=== PATIENT | female | born 1985 | race Caucasian/White ===

== ENCOUNTER 2017-10-28 07:33 | Inpatient (IN) | payer SELFPAY ==
[2017-10-28] VITALS (7 sets, daily range): BP systolic 134–167; BP diastolic 87–109; PULSE 81–97; RESP 15–20; TEMP 36.2–37.1; O2SAT 95–100; BMI 25.0; BMI 28.5
--- NOTE | 2017-10-28 07:56 | CT_ITS ---
STUDY: CT ABDOMEN AND PELVIS WITHOUT CONTRAST REASON FOR EXAM: Female, 32 years old. Right flank pain. RADIATION DOSAGE (If Supplied By Facility): CTDIvol = ( 7.41 ) mGy, DLP = ( 381.39 ) mGycm TECHNIQUE: Transaxial images were obtained from the dome of the diaphragm to the symphysis pubis without oral contrast, and without intravenous contrast. Sagittal and coronal images were reconstructed. Individualized dose optimization techniques were used for this CT. COMPARISON: None. FINDINGS: The visualized lung bases are unremarkable. The visualized portions of the heart are within normal limits. Normal liver. Questionable tiny gallstones. Normal spleen. Normal pancreas. Normal bilateral adrenal glands. Moderate right hydronephrosis. Calcification of the papilla suggestive of medullary sponge kidney. Dilated right ureter down to the ureterovesical junction due to a 3.5 mm calculus at the UV junction. Moderate degree of left hydronephrosis and left hydroureter due to a 2.8 mm calculus at ureterovesical junction. This also evidence of left medullary sponge kidney. There is a small hiatal hernia. Normal small intestine. Normal colon. The appendix is visualized and appears normal. Normal abdominal aorta. Normal inferior vena cava. Normal retroperitoneum. Normal urinary bladder. Normal abdominal wall. Normal osseous structures. CT/Abdomen/Pelvis without Cont IMPRESSION: Bilateral hydronephrosis and hydroureter due to a 3 mm calculus at the right ureterovesical junction and 2.8 mm calculus at the left ureterovesical junction. Findings in keeping with bilateral medullary sponge kidneys. Electronically Signed: Rey Quinn MD at 9:30 EDT Tel [phone], Service support ,
--- NOTE | 2017-10-28 07:57 | ED.VISSUMM ---
- ER Visit Summary Date of Service: 10/28/17 Chief Complaint: Flank pain History of Present Illness: The patient is a 32 F with flank pain that started about 4 hours ago. It woke her up from sleep. No hematuria. Pain is described as sharp and stabbing. No history of kidney stones before. Physical Examination: She appears in some distress Moist mucous membranes, no obvious facial deformity No C-spine tenderness supple neck. Regular rate and rhythm without any obvious murmurs Clear lungs bilaterally speaking in full sentences without any obvious respiratory distress Abdomen soft with tenderness in the right side of the abdomen mid axillary line. She does have right-sided CVA tenderness. Moves all extremities without any difficulty or pain. Skin does not show any obvious rashes or lesions, no trauma. Alert oriented ?3 with no gross focal deficit Emergency Department Course and Treatment: Is found to have bilateral hydronephrosis with bilateral UVJ stones. I discussed the patient with urology she will need surgery tomorrow in the meantime she will be admitted. There is no evidence of infection. Disposition: Admit in stable condition Impression: Bilateral impacted kidney stones with bilateral hydronephrosis This note was generated with [employer] dictation software. It may contain incorrect words, spelling, and punctuation that were not noted in review of the chart prior to signing ED Disposition - Plan for ED Patient: Chief Complaint: Flank Pain
[2017-10-28] MEDS: Morphine 4 MG/ML Syringe IV ×2 (08:02→10:44)
[2017-10-28] MEDS: Ondansetron 4 MG/2 ML Vial IV (08:02)
[2017-10-28] MEDS: 0.9% Normal Saline 1,000 ML 1000 ML IV (08:02)
[2017-10-28] MEDS: Ketorolac 30 MG/ML Syringe 15 MG IV (08:02)
[2017-10-28 08:07] LABS: Absolute Lymphocyte Count 1.16 X10^3/ul (0.83-4.51); Absolute Neutrophil Count 9.6 X10^3/uL (2.0-7.7); Basophil# 0.03 X10^3/uL; Basophil% 0.3 % (0-1); Eosinophil# 0.04 X10^3/uL; Eosinophils% 0.4 % (0-5); Hematocrit 39.7 % (37-47); Hemoglobin 13.1 g/dl (12.0-15.0); Lymphocyte # 1.16 X10^3/ul (4.0); Lymphocyte % 10.3 % (19-41); Mean Corpuscular Hgb 26.6 pg (27.0-32.0); Mean Corpuscular Volume 80.7 fL (81-99); Mean Platelet Vol. 11.1 fl (6.2-12.0); Monocyte# 0.42 X10^3/uL; Monocyte% 3.7 % (0-10); Neutrophil # 9.58 X10^3/uL (2.7-7.7); Neutrophil % 85.2 % (47-70); POSITIVE COUNT NO; POSITIVE DIFFERENTIAL NO; POSITIVE MORPHOLOGY NO; Platelet Count 210 K/mm3 (150-450); RBC Distribution Width CV 13.1 % (11.6-14.6); Red Blood Count 4.92 M/mm3 (4.2-5.4); White Blood Count 11.2 K/mm3 (4.4-11.0)
[2017-10-28 08:17] LABS: Anion Gap 7 (5-15); BUN 13 mg/dL (7-18); BUN/Creat Ratio 12.7 RATIO (10-20); Calcium,Total 8.7 mg/dL (8.5-10.1); Chloride 104 mmol/L (98-107); Creatinine, Serum 1.02 mg/dL (0.55-1.02); EST Glomerular Filtration Rate 67 mL/min (>60); Est Glom Filt Rate - Afr Amer 81 mL/min (>60); Estimated Creatinine Clearance 71.91 ml/min; Glucose 105 mg/dL (74-106); Potassium 3.8 mmol/L (3.5-5.1); Sodium Level 139 mmol/L (136-145)
[2017-10-28 08:30] LABS: Mucous, Urine 0 SEEN /hpf (<or=2+); White Blood Cells 0 SEEN /hpf (0-5)
[2017-10-28 08:40] LABS: Internal QC Validated? YES +Cl - CLEAR BKGD; Pregnancy, Urine Negative Negative
[2017-10-28 08:47] LABS: Color, Urine Yellow (Yellow); Glucose, Dipstick Normal (Normal); Ketone-Dipstick Negative (Negative); Leukocyte Esterase-Dipstick Negative /ul (Negative); Nitrite-Dipstick Negative (Negative); Occult Blood-Urine 250 /ul (Negative); Protein-Dipstick Negative (Negative); Urine Bilirubin Dipstick Negative (Negative); Urine Clarity Sl. Cloudy (Clear); Urine Urobilinogen Normal (Normal); Urine pH 6.5 (5.0 - 8.0)
[2017-10-28 08:54] LABS: Bacteria 1+ /hpf (None Seen); Red Blood Cells-Urine 25-50 SEEN /hpf (0-5); Squamous Epithelial Cells - UA 0-5 SEEN /hpf (5-10)
--- NOTE | 2017-10-28 10:31 | NURSING ---
DR SHADIA BOSWELL
--- NOTE | 2017-10-28 10:38 | NURSING ---
MED SURG CORIN BOSWELL/SHADIA
--- NOTE | 2017-10-28 10:39 | HP.PCM_ITS ---
Problem List (1) Bilateral ureteral calculi Status: Acute Comment: Bilateral hydronephrosis and hydroureter due to 3 mm calculus at right ureterovesical junction and 2.8 mm calculus at the left ureteral vesicle junction (2) Hydronephrosis Status: Acute Qualifiers: Hydronephrosis type: other Qualified Code(s): N13.39 - Other hydronephrosis (3) Hydroureter Status: Acute History of Present Illness Date of Admission: 10/28/17 Chief Complaint: Flank pain, ongoing, nausea, emesis The patient is a 32 y/o F w/ no marked PMHx w/ x 2 and 1 miscarriage otherwise healthy who notes onset ~ 2 weeks prior L flank pain, noted to be sharp prompting UC evaluation in [place] where she lives with no intervention at that time and improvement after 24 hours; however, pain was noted to continue intermittently with then onset on AM of current presentation with new onset R sided flank pain concurrently, worsened, sharp with nausea and emesis. In the ED work-up included T 98.7, heart rate 97, BP initially 167/109--> 136/93 , respiratory rate 20, 100% on room air, CBC with WBC 11.2, Hgb 13.1, Plts 210 with L shift, BMP unremarkable with normal renal function, UA w/ occult blood 250, RBC 25-50, 1+ bacteria, WBC 0-5, CT A/P w/ bilateral hydronephrosis and hydroureter due to a 3 mm calculus at the right ureteral vesicle junction and 2.8 mm calculus at the left ureterovesical junction with findings in keeping with bilateral possible medullary sponge kidneys. In the emergency room patient administered Toradol, morphine, Zofran, normal saline and neurology consulted. Dr. Christie noted suspicions that bilateral stones would pass without intervention therefore requested admission to medicine service with consultation. 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 Lives: Spouse/ Significant Other, With Family Smoking Status: Never smoker Tobacco Use: Non-smoker Alcohol: None Drugs: None - *Family History Maternal History Items: - - Maternal family history of anemia. Paternal History Items: High Cholesterol Review of Systems Constitutional: Reports: Malaise, Weakness, Fatigue. Denies: Chills, Fever, Weight Change HEENT: Denies: Head Aches, Sinus Congestion, Sinus Drainage Cardiovascular: Denies: Chest Pain, Palpitations Respiratory: Denies: Cough, Shortness of breath at rest, Sputum production Gastrointestinal: Reports: Abdominal Pain, Nausea, Vomiting Genitourinary: Reports: Dysuria Musculoskeletal: Reports: Back Pain. Denies: Joint Pain, Joint Tenderness Skin: Denies: Rash, Wounds Neurological: Denies: Numbness, Tingling, Focal weakness Psychiatric: Denies: Anxiety, Depression, Homicidal Ideations, Suicidal Ideations Hematologic/ Lymphatic: Denies: Easy Bruising, Easy Bleeding VTE Information - Inpt Only VTE Present on Admission: No VTE Mechan Device Prophylaxis: SCD's VTE Pharm Prophylaxis ordered?: No Reason prophylaxis not ordered:: Treatment Not Indicated Patient Problems: Active and Suspected Problems Bilateral ureteral calculi (Acute) Bilateral hydronephrosis and hydroureter due to 3 mm calculus at right ureterovesical junction and 2.8 mm calculus at the left ureteral vesicle junction Hydronephrosis (Acute) Hydroureter (Acute) Subjective: Seated upright in the bed, notes pain improved, but ongoing. Objective: Physical Examination: General: awake, alert, oriented x 3 and cooperative, seated upright in bed in no apparent distress, fatigued appearance. Skin: normal color, turgor, no icterus, cyanosis. HEENT: AT/NC, EOMI, PERRLA, dry MM, no carotid bruits or JVD noted. Lungs: Diminished BS BL, poor effort, > bases, no rales, ronchi or wheezing. Heart: Regular rate and rhythm; no gallop, rub audible. Abdomen: soft, mild BL LQ TTP, BL flank discomfort w/ palpation, ND, decreased BS, no HSM. Extremities: no cyanosis, clubbing, or edema. Neurological: patient awake, alert, oriented x 3; cognitive function intact; pupils equally reactive to light and accomodation; cranial nerves II-XII grossly normal, moving all 4 extremities, no focal deficits, strength moderately globally decreased secondary to acute presentation. Psychiatric: affect appears fatigued, no acute evidence of depressive or anxiety feelings. - Physical Exam Vital Signs Temp Pulse Resp BP Pulse Ox 98 F 90 15 163/94 H 99 10/28/17 07:34 10/28/17 10:19 10/28/17 10:19 10/28/17 10:19 10/28/17 10:19 Oxygen Delivery Method Room Air Weight: 150 lb Body Mass Index (BMI) 25.0 Laboratory Tests Past 24 Hrs 10/28/17 10/28/17 10/28/17 07:50 07:50 07:50 WBC 11.2 H RBC 4.92 Hgb 13.1 Hct 39.7 MCV 80.7 L MCH 26.6 L MCHC 33.0 RDW 13.1 RDW Differential 38.0 Plt Count 210 MPV 11.1 Immature Gran % (Auto) 0.100 Neut % (Auto) 85.2 H Lymph % (Auto) 10.3 L Stewart % (Auto) 3.7 Eos % (Auto) 0.4 Baso % (Auto) 0.3 Absolute Neuts (auto) 9.6 H Absolute Lymphs (auto) 1.16 Total Counted Not Reportable Sodium 139 Potassium 3.8 Chloride 104 Carbon Dioxide 28.0 Anion Gap 7 BUN 13 Creatinine 1.02 Estim Creat Clear Calc 71.91 Est GFR (MDRD) Af Amer 81 Est GFR (MDRD) Non-Af 67 BUN/Creatinine Ratio 12.7 Glucose 105 Calcium 8.7 Urine Color Urine Clarity Urine pH Ur Specific [place] Urine Protein Urine Glucose (UA) Urine Ketones Urine Occult Blood Urine Nitrite Urine Bilirubin Urine Urobilinogen Ur Leukocyte Esterase Urine RBC Urine WBC Ur Squamous Epith Cells Urine Bacteria Urine Mucus Urine Test Negative 10/28/17 07:50 WBC RBC Hgb Hct MCV MCH MCHC RDW RDW Differential Plt Count MPV Immature Gran % (Auto) Neut % (Auto) Lymph % (Auto) Stewart % (Auto) Eos % (Auto) Baso % (Auto) Absolute Neuts (auto) Absolute Lymphs (auto) Total Counted Sodium Potassium Chloride Carbon Dioxide Anion Gap BUN Creatinine Estim Creat Clear Calc Est GFR (MDRD) Af Amer Est GFR (MDRD) Non-Af BUN/Creatinine Ratio Glucose Calcium Urine Color Yellow Urine Clarity Sl. Cloudy Urine pH 6.5 Ur Specific [place] 1.020 Urine Protein Negative Urine Glucose (UA) Normal Urine Ketones Negative Urine Occult Blood 250 H Urine Nitrite Negative Urine Bilirubin Negative Urine Urobilinogen Normal Ur Leukocyte Esterase Negative Urine RBC 25-50 SEEN Urine WBC 0 SEEN Ur Squamous Epith Cells 0-5 SEEN Urine Bacteria 1+ Urine Mucus 0 SEEN Urine Test Assessment/Plan All Active Problems Bilateral ureteral calculi (Acute) Hydronephrosis (Acute) Hydroureter (Acute) The patient is a 32 y/o F w/ no marked PMHx w/ x 2 and 1 miscarriage otherwise healthy who notes onset ~ 2 weeks prior L flank pain, noted to be sharp prompting UC evaluation in [place] where she lives with no intervention at that time and improvement after 24 hours; however, pain was noted to continue intermittently with then onset on AM of current presentation with new onset R sided flank pain concurrently, worsened, sharp with nausea and emesis. (1) Acute Flank Pain, secondary to Acute Nephrolithiasis w/ resulting BL Hydronephrosis and Hydroureter: CBC with WBC 11.2, Hgb 13.1, Plts 210 with L shift, BMP unremarkable with normal renal function, UA w/ occult blood 250, RBC 25-50, 1+ bacteria, WBC 0-5, CT A/P w/ bilateral hydronephrosis and hydroureter due to a 3 mm calculus at the right ureteral vesicle junction and 2.8 mm calculus at the left ureterovesical junction with findings in keeping with bilateral possible medullary sponge kidneys. Will admit to [place], maintain on aggressive hydration, allow diet with NPO after midnight for possible intervention, IV/PRN pain regimen, given normal renal fx additionally toradol administration, PRN anti-emetics, monitor I&Os. Given size of calculus Urology feels will likely pass without surgical intervention, however, given ongoing sxs x 2 weeks and now worsening w/ hydroureter and hydronephrosis suspect may need surgical intervention eventually, will continue flomax, strain urine, IVFs as requested per Urology. (2) Elevated BP without HTN Dx: Likely secondary to pain, continue to monitor, PRN hydralazine. (3) DVT Prophylaxis: SARAH, defer chemoprophylaxis, low risk, ambulation. Code Visit Inpatient E&M: 56898 Init Hosp L2
--- NOTE | 2017-10-28 10:44 | NURSING ---
218 NEPHROLITHIASIS W HYRONEPHROSIS KEYSHA WHITE
[2017-10-28] MEDS: 0.9% Normal Saline 1,000 ML 125 ML IV ×2 (12:04→18:31)
--- NOTE | 2017-10-28 12:16 | PCM.CONS.U ---
Problem List (1) Bilateral ureteral calculi Status: Acute Reason for Consult Date of Consultation: 10/28/17 Reason for Consultation: Bilateral kidney stones, ureteral calculi History of Present Illness: The patient is a 32 year old female who presented bilateral hydronephrosis for a 3 mm and a 4 mm stone in both the distal ureters, her creatinine is normal she is clinically stable she is admitted for pain control Past Medical History Allergies No Known Allergies Allergy (Verified 10/28/17 07:36) Home Medications: Ambulatory Orders Medication Instructions Recorded NK [NK] 10/28/17 Surgical History: noncontributory Psychiatric History: No pertinent psych hx 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 Lives: Spouse/ Significant Other Smoking Status: Never smoker Tobacco Use: Non-smoker Alcohol: None Drugs: None - *Family History Maternal History Items: No pertinent history Review of Systems Constitutional: Denies: Chills, Fever, Weight Change HEENT: Denies: Head Aches, Sinus Congestion, Sinus Drainage Cardiovascular: Denies: Chest Pain, Palpitations Respiratory: Denies: Cough, Shortness of breath at rest, Sputum production Gastrointestinal: Denies: Abdominal Pain, Nausea, Vomiting Genitourinary: Denies: Dysuria Musculoskeletal: Denies: Joint Pain, Joint Tenderness Skin: Denies: Rash, Wounds Neurological: Denies: Numbness, Tingling, Focal weakness Psychiatric: Denies: Anxiety, Depression, Homicidal Ideations, Suicidal Ideations Hematologic/ Lymphatic: Denies: Easy Bruising, Easy Bleeding Physical Exam - Physical Exam Vital Signs Temp 98.7 F 10/28/17 11:53 Pulse 81 10/28/17 11:53 Resp 18 10/28/17 11:53 BP 136/93 H 10/28/17 11:53 Pulse Ox 99 10/28/17 11:53 Intake & Output 10/26/17 10/27/17 10/28/17 23:59 23:59 23:59 Weight: 77.7 kg General: Alert HEENT: Atraumatic, Normocephalic Lungs: Normal air movement Cardiovascular: Regular rate Abdomen: Soft Rectal: Exam deferred Assessment/Plan All Active Problems Bilateral ureteral calculi (Acute) 32-year-old female with bilateral kidney stones fairly small 3 mm and 4 mm almost out both of them are practically in the bladder I think very likely she is going to pass the stone spontaneously at this point I really do not have any plan to take her surgery to do any extraction recommend just push fluids Flomax and strain all her urine if she fails conservative measures after 72 hours or becomes sicker etc. may consider intervention but for now we will sit tight.
[2017-10-28] MEDS: Ketorolac 15 MG/ML Vial IV ×2 (15:02→22:00)
[2017-10-28] MEDS: proMETHazine 25 MG/ML Syringe 12.5 MG IV (15:07)
--- NOTE | 2017-10-28 15:30 | NURSING ---
Knee High jose hose applied to jesus legs. Explained reason for order. Pt had 500cc clear liquid/pale yellow emesis while this nurse back there with pt. Phenergan given via IV.
[2017-10-28] MEDS: Tamsulosin HCl 0.4 MG Capsule PO (18:30)
[2017-10-29] VITALS (19 sets, daily range): BP systolic 133–161; BP diastolic 85–113; PULSE 73–111; RESP 16–18; TEMP 36.4–37.2; O2SAT 95–100; BMI 28.5
--- NOTE | 2017-10-29 04:08 | RAD_ITS ---
STUDY: X-RAY - ABDOMEN/PELVIS REASON FOR EXAM: Female, 32 years old. Kidney stones TECHNIQUE: 2 views COMPARISON: CT dated October 28, 2017 FINDINGS: Normal visualized lung bases. There is an unremarkable bowel gas pattern. There is no demonstrated free abdominal air. The visualized liver, spleen and kidneys are grossly normal in size and morphology. Bilateral distal ureteral stones are again identified. There are also phleboliths in the LEFT side of the pelvis. Normal soft tissue structures. Normal visualized osseous structures. RAD/Abdomen Single View IMPRESSION: There is an unremarkable bowel gas pattern. There is no demonstrated free abdominal air. Bilateral distal ureteral stones are again identified. There are also phleboliths in the LEFT side of the pelvis. Electronically Signed: Tre Azul MD at 5:13 EDT , Service support ,
[2017-10-29] MEDS: Ketorolac 15 MG/ML Vial IV ×3 (05:21→21:43)
--- NOTE | 2017-10-29 06:31 | PN_ITS ---
Patient Problems: Active and Suspected Problems (Last Updated 10/28/17 @ 12:28 by Briana Lopez) Bilateral ureteral calculi (Acute) Bilateral hydronephrosis and hydroureter due to 3 mm calculus at right ureterovesical junction and 2.8 mm calculus at the left ureteral vesicle junction Hydronephrosis (Acute) Hydroureter (Acute) Subjective: Patient notes pain has improved since initial presentation with only scheduled Toradol with only mild intermittent right flank discomfort sharply but short lasting. Patient did have nausea and episode of emesis day prior but nothing since. Discussed ongoing presentation with KUB this morning with unremarkable bowel gas pattern with bilateral distal ureteral stones identified and also phleboliths with likely progression operative intervention as discussed prior and expected. Patient denies fevers, chills, nausea, emesis, abdominal pain, chest pain or dyspnea. Objective: Physical Examination: General: awake, alert, oriented x 3 and cooperative, seated upright in bed, improved appearance. Skin: normal color, turgor, no icterus, cyanosis. HEENT: AT/NC, EOMI, PERRLA, improved MMM. Lungs: Diminished BS BL, mild effort, > bases, no rales, ronchi or wheezing. Heart: Regular rate and rhythm; no gallop, rub audible. Abdomen: soft, continued BL LQ discomfort, improved CVA TTP, ND, mildly decreased BS. Extremities: no cyanosis, clubbing, or edema. Neurological: patient awake, alert, oriented x 3; cognitive function intact; pupils equally reactive to light and accomodation; cranial nerves II-XII grossly normal, moving all 4 extremities, no focal deficits, strength moderately globally decreased secondary to acute presentation. Psychiatric: affect appears improved, no acute evidence of depressive or anxiety feelings. Vitals/I&O's: Vital Signs Temp Pulse Resp BP Pulse Ox 97.6 F L 85 16 135/91 H 98 10/29/17 02:30 10/29/17 02:30 10/29/17 02:30 10/29/17 02:30 10/29/17 02:30 Oxygen Delivery Method Room Air Weight: 171 lb 4.787 oz Body Mass Index (BMI) 28.5 Intake and Output for Last 24 Hours 10/27/17 10/28/17 10/29/17 23:59 23:59 23:59 Intake Total 1176 / 1176 1977 Output Total 1500 / 1500 925 / 925 Balance -324 / -324 1053 / 1053 Laboratory Results 10/29/17 06:06: WBC Pending, RBC Pending, Hgb Pending, Hct Pending, MCV Pending , MCH Pending, MCHC Pending, RDW Pending, RDW Differential Pending, Plt Count Pending, Neut % (Auto) Pending, Absolute Neuts (auto) Pending, Total Counted Pending 10/29/17 06:06: Sodium Pending, Potassium Pending, Chloride Pending, Carbon Dioxide Pending, Anion Gap Pending, BUN Pending, Creatinine Pending, Est GFR ( MDRD) Af Amer Pending, Est GFR (MDRD) Non-Af Pending, BUN/Creatinine Ratio Pending, Glucose Pending, Calcium Pending Current Medications Acetaminophen (Tylenol) 650 mg PO Q6H PRN PRN PRN Reason: Mild Pain (scale 0-3)/T>100.7 Al Hydroxide/Mg Hydroxide (Mylanta Ii) 30 ml PO Q6H PRN PRN PRN Reason: Gastric burning Hydralazine HCl (Apresoline Iv) 10 mg IV Q4H PRN PRN PRN Reason: SBP > 160 Sodium Chloride () 1,000 mls @ 125 mls/hr IV .Q8H [facility] Last Admin: 10/28/17 18:31 Dose: 125 mls/hr Ketorolac Tromethamine (Toradol) 15 mg IV Q8 [facility] Stop: 11/02/17 12:28 Last Admin: 10/29/17 05:21 Dose: 15 mg Magnesium Hydroxide (Milk Of Magnesia) 30 ml PO DAILY PRN PRN PRN Reason: Constipation Morphine Sulfate () 2 - 4 mg IV Q3H PRN PRN PRN Reason: Severe Pain (pain scale 6-10) Morphine Sulfate () 1 - 2 mg IV Q4H PRN PRN PRN Reason: Moderate Pain (pain scale 4-5) Morphine Sulfate () 2 - 4 mg IV Q3H PRN PRN PRN Reason: Severe Pain (pain scale 6-10) Ondansetron HCl (Zofran) 4 mg IV Q8H PRN PRN PRN Reason: NAUSEA Oxycodone HCl (Oxyir) 5 mg PO Q4H PRN PRN PRN Reason: Moderate Pain (pain scale 4-5) Promethazine HCl (Phenergan) 12.5 mg IV Q6H PRN PRN PRN Reason: NAUSEA/VOMITING Last Admin: 10/28/17 15:07 Dose: 12.5 mg Tamsulosin HCl (Flomax) 0.4 mg PO BID@0830,1730 [place]ED[place] Last Admin: 10/28/17 18:30 Dose: 0.4 mg Medical Necessity - Tobacco Use Smoking Status: Never smoker Tobacco Use: Non-smoker Assessment/Plan All Active Problems (Last Updated 10/28/17 @ 12:28 by rBiana Lopez) Bilateral ureteral calculi (Acute) Hydronephrosis (Acute) Hydroureter (Acute) The patient is a 32 y/o F w/ no marked PMHx w/ x 2 and 1 miscarriage otherwise healthy who notes onset ~ 2 weeks prior L flank pain, noted to be sharp prompting UC evaluation in [place] where she lives with no intervention at that time and improvement after 24 hours; however, pain was noted to continue intermittently with then onset on AM of current presentation with new onset R sided flank pain concurrently, worsened, sharp with nausea and emesis. (1) Acute Flank Pain, secondary to Acute Nephrolithiasis w/ resulting BL Hydronephrosis and Hydroureter: CBC with WBC 11.2, Hgb 13.1, Plts 210 with L shift, BMP unremarkable with normal renal function, UA w/ occult blood 250, RBC 25-50, 1+ bacteria, WBC 0-5, CT A/P w/ bilateral hydronephrosis and hydroureter due to a 3 mm calculus at the right ureteral vesicle junction and 2.8 mm calculus at the left ureterovesical junction with findings in keeping with bilateral possible medullary sponge kidneys. Admitted to [place], maintain on aggressive hydration, NPO pending AM KUB, IV/PRN pain regimen, given normal renal fx additionally toradol administration, PRN anti-emetics, monitor I&Os. Given size of calculus Urology feels will likely pass without surgical intervention, however, given ongoing sxs x 2 weeks and now worsening w/ hydroureter and hydronephrosis suspect may need surgical intervention eventually , will continue flomax, strain urine without stone noted as of yet, IVFs, KUB this morning with unremarkable bowel gas pattern with bilateral distal ureteral stones identified and also phleboliths. Expect need for operative intervention, awaiting AM evaluation per Urology (bilateral ureteroscopy basket extraction of stones and possible bilateral stents). (2) Elevated BP without HTN Dx: Likely secondary to pain, continued to monitor, SBP ~30 range however DBP low 90's, PRN hydralazine. (3) DVT Prophylaxis: SARAH, defer chemoprophylaxis, low risk, ambulation. Code Visit Inpatient E&M: 33693 Subs Hosp L2
[2017-10-29 06:36] LABS: Absolute Lymphocyte Count 1.83 X10^3/ul (0.83-4.51); Absolute Neutrophil Count 3.9 X10^3/uL (2.0-7.7); Basophil# 0.01 X10^3/uL; Basophil% 0.2 % (0-1); Eosinophil# 0.19 X10^3/uL; Hematocrit 34.6 % (37-47); Hemoglobin 11.5 g/dl (12.0-15.0); Lymphocyte # 1.83 X10^3/ul (4.0); Lymphocyte % 28.9 % (19-41); Mean Corp Hgb Conc 33.2 g/gl (32-36); Mean Corpuscular Hgb 27.1 pg (27.0-32.0); Mean Corpuscular Volume 81.4 fL (81-99); Mean Platelet Vol. 11.4 fl (6.2-12.0); Monocyte# 0.38 X10^3/uL; Neutrophil # 3.92 X10^3/uL (2.7-7.7); Neutrophil % 61.9 % (47-70); Platelet Count 197 K/mm3 (150-450); RBC Distribution Width CV 13.2 % (11.6-14.6); RBC Distribution Width SD 38.1 fl (35.1-43.9); Red Blood Count 4.25 M/mm3 (4.2-5.4); White Blood Count 6.3 K/mm3 (4.4-11.0)
[2017-10-29 06:40] LABS: POSITIVE COUNT NO; POSITIVE DIFFERENTIAL NO; POSITIVE MORPHOLOGY NO
[2017-10-29 06:43] LABS: Anion Gap 8 (5-15); BUN 10 mg/dL (7-18); BUN/Creat Ratio 11.6 RATIO (10-20); Calcium,Total 8.3 mg/dL (8.5-10.1); Chloride 109 mmol/L (98-107); Creatinine, Serum 0.86 mg/dL (0.55-1.02); EST Glomerular Filtration Rate 81 mL/min (>60); Est Glom Filt Rate - Afr Amer 99 mL/min (>60); Estimated Creatinine Clearance 85.29 ml/min; Glucose 93 mg/dL (74-106); Potassium 3.9 mmol/L (3.5-5.1); Sodium Level 143 mmol/L (136-145)
--- NOTE | 2017-10-29 07:26 | PCM.PN.BLA ---
Progress Note 32-year-old female presents with bilateral obstruction from bilateral small calculi in the ureter, KUB today still demonstrates stones has not passed the stones her creatinine is still normal but I think she has failed conservative management, plan to intervene today with surgery with bilateral ureteroscopy basket extraction of stones and possible bilateral stents should be added on the schedule for today make her n.p.o. for surgery for today.
[2017-10-29] MEDS: 0.9% Normal Saline 1,000 ML 125 ML IV (10:59)
[2017-10-29] MEDS: Acetaminophen 325 MG Tablet 650 MG PO (10:59)
[2017-10-29] MEDS: 0.9% NaCl Peripheral Flush Adult/Peds IV ×2 (12:07→20:05)
[2017-10-29] MEDS: proMETHazine 25 MG/ML Syringe 12.5 MG IV (12:07)
--- NOTE | 2017-10-29 16:17 | CASEMGMT ---
Social Work Note RN KORI Li updated this worker that pt is self pay and has no PCP. SW attempted to see pt before this worker left for the day but pt off floor for surgery. SW will follow up with pt tomorrow. Ester Moy SHADE HANGER, MEDIEVAL ENGLISH LITERATURE PROFESSOR
--- NOTE | 2017-10-29 16:27 | CASEMGMT ---
Addendum entered by Jen Arthur 10/29/17 16:34: Shea EVANGELISTA RN CM Original Note: RN CM Face to Face with patient for initial transition planning/care coordination assessment. RN CM introduced self and role at [facility]. Patient resting in bed, alert and oriented. Patient willing to participate in assessment and is able to answer all questions appropriately. Pharmacy and demographics verified. Pt states does not have PCP. See link attached. Pt wishes to discharge home, denies need for home health at this time. Pt states she has no further needs or concerns at this time. BOSSMAN Samaniego updated re: self pay. CM to follow for discharge planning needs that may arise. Disposition plan: pt to discharge home w/follow up plans in place.
--- NOTE | 2017-10-29 16:42 | PCM.OPRPT ---
Problem List (1) Bilateral ureteral calculi Status: Acute Comment: Bilateral hydronephrosis and hydroureter due to 3 mm calculus at right ureterovesical junction and 2.8 mm calculus at the left ureteral vesicle junction Report of Operation Date of Procedure: 10/29/17 Pre-Operative Diagnosis: Bilateral ureteral calculi Post-Operative Diagnosis: Same Surgery/Procedure Performed:: Cystoscopy, right ureteroscopy basket extraction of stone and stent placement, left balloon dilation left ureteroscopy basket extraction of stone and left stent. Description of Surgical Findings:: 32-year-old female taken back to the operating room she has bilateral stones in both bilateral ureters is failed conservative management not been able pass some today we plan to do ureteroscopy and extraction of the stones. 32-year-old female taken back to the operating of the smooth induction of general anesthesia looked inside the bladder with the cystoscope the trigone was normal the bladder is normal I think cannulated the right ureteral orifice with a Glidewire and a Glidewire went up the ureter and then I could feel the wire hit the stone and after the wire passed the stone left the wire in place the next of the wire went in with an offset ureteroscope was able to get in the distal ureter but was not able to get the stone but could barely see it so advanced the basket up to where he can see the stone deployed the basket grab the stone and was able to then extract the stones in the distal ureter on the right side then over the wire I placed a stent in the right side with a string for extraction. I then went to the left side and again advanced a wire up the left side could not feel any stone hitting against a wire but I then used a balloon dilator and balloon dilated the distal ureter I then went next the wire with the ureteroscope and then he visualized the stone and then used a tipless 2.8 Chinese basket was able to grab the stone with a basket and extract the stone easily out of the left side after extracting that stone then advanced a wire and a stent on that side left the stent in good position the stent coiled in the kidney and then drain the bladder left both stents in place I tied the stents together left him in the hanging out the meatus in order to remove the stent problem will probably need to see the patient in 1 week to get the stent out. Type of Anesthesia:: General Drains: bilateral stents - Admit VTE Documentation VTE Present on Admission: No VTE Mechan Device Prophylaxis: SCD's VTE Pharm Prophylaxis ordered?: No Reason prophylaxis not ordered:: Treatment Not Indicated
--- NOTE | 2017-10-29 17:47 | DCINST_ITS ---
- Discharge Diagnoses Current Active Problems: Current Active and Chronic Problems (Last Updated 10/28/17 @ 12:28 by Briana Lopez) Bilateral ureteral calculi (Acute) Bilateral hydronephrosis and hydroureter due to 3 mm calculus at right ureterovesical junction and 2.8 mm calculus at the left ureteral vesicle junction Hydronephrosis (Acute) Hydroureter (Acute) You will use the following diet at home:: No restrictions Your food should be the consistency of: Regular Your liquids should be the consistency of: Regular/Thin Discharge Activity: - - Avoid driving with narcotic therapies. Activity per Urology discretion. May resume sexual activity in: - - Once cleared per Urology. Weight Bearing Status: Weight bearing as tolerated Call your doctor if you observe: Fever of 101 or Higher, Inability to urinate, Inability to have a bowel movement, Shortness of breath, Dizziness, Fainting spells, Chest pain, Uncontrolled pain Instructions: Kidney Stones: Are You at Risk?, Understanding Kidney Stones, Identifying Kidney Stones, Kidney Stones: Your Evaluation, Treating Kidney Stones: Ureteroscopic Stone Removal, Preventing Kidney Stones Allergies/Adverse Reactions: Allergies No Known Allergies Allergy (Verified 10/28/17 07:36) Medications to take at Discharge Ondansetron HCl [Zofran] 4 mg PO Q6H PRN #20 tab 10/29/17 Oxycodone [Oxyir] 5 mg PO Q4H PRN PRN 4 Days #20 tab 10/29/17 The following prescriptions were given: Oxycodone [Oxyir] 5 mg PO Q4H PRN PRN 4 Days #20 tab PRN Reason: Moderate Pain (pain scale 4-5) Ondansetron HCl [Zofran] 4 mg PO Q6H PRN #20 tab PRN Reason: nausea and emesis Primary Care Physician: Care Physician,No Primary [Primary Care Provider] - Please follow up with your Primary Care Physician in: Follow-up with Primary Care within 3-5 days to review admission. Test Results: Test results from this visit will be discussed in further detail at your follow- up appointment, if applicable. Please Follow Up With: Sandip Christie MD When: 1 week. Proposed Discharge Date: 10/29/17
--- NOTE | 2017-10-29 17:48 | PCM.DC.SUM ---
Discharge Date and Diagnosis - Problem List Patient Problems: Active and Suspected Problems (Last Updated 10/28/17 @ 12:28 by Briana Lopez) Bilateral ureteral calculi (Acute) Bilateral hydronephrosis and hydroureter due to 3 mm calculus at right ureterovesical junction and 2.8 mm calculus at the left ureteral vesicle junction Hydronephrosis (Acute) Hydroureter (Acute) Date of Admission: 10/28/17 Date of Discharge: 10/29/17 - Primary Discharge Diagnosis Active and Suspected Problems (Last Updated 10/28/17 @ 12:28 by Briana Lopez) Bilateral ureteral calculi (Acute) Bilateral hydronephrosis and hydroureter due to 3 mm calculus at right ureterovesical junction and 2.8 mm calculus at the left ureteral vesicle junction Hydronephrosis (Acute) Hydroureter (Acute) - Secondary Discharge Diagnosis x 2 Miscarriage x [address] Christie Urology Operations: - - Cystoscopy, right ureteroscopy basket extraction of stone and stent placement, left balloon dilation left ureteroscopy basket extraction of stone and left stent. Procedures: None Summary of Care Provided: The patient is a 32 y/o F w/ no marked PMHx w/ x 2 and 1 miscarriage otherwise healthy who presents to [facility] ED on 10/29/17 w/ onset ~ 2 weeks prior L flank pain, noted to be sharp prompting UC evaluation in [place] where she lives with no intervention at that time and improvement after 24 hours; however, pain was noted to continue intermittently with then onset on AM of current presentation with new onset R sided flank pain concurrently, worsened, sharp with nausea and emesis. 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 Admitted to [place], maintain on aggressive hydration, NPO pending AM KUB, IV/PRN pain regimen, given normal renal fx additionally toradol administration, PRN anti-emetics, monitor I&Os. Given size of calculus Urology feels will likely pass without surgical intervention, however, given ongoing sxs x 2 weeks and now worsening w/ hydroureter and hydronephrosis suspect may need surgical intervention eventually, maintained on flomax, straining of urine without stone noted, IVFs, KUB in the morning unremarkable bowel gas pattern with bilateral distal ureteral stones identified and also phleboliths. AM evaluation per Urology (bilateral ureteroscopy basket extraction of stones and possible bilateral stents) with transition to OR 10/29/17 afternoon w/ cystoscopy, right ureteroscopy basket extraction of stone and stent placement, left balloon dilation left ureteroscopy basket extraction of stone and left stent. Patient following pain control, diet toleration and urination per Dr. Christie discharged to home without abx, no need for further flomax with follow-up with Dr. Christie in 1 week. Discharge Activity: - - Avoid driving with narcotic therapies. Activity per Urology discretion. May resume sexual activity in: - - Once cleared per Urology. Weight Bearing Status: Weight bearing as tolerated Call your doctor if you observe: Fever of 101 or Higher, Inability to urinate, Inability to have a bowel movement, Shortness of breath, Dizziness, Fainting spells, Chest pain, Uncontrolled pain Home Medications: Medications to take at Discharge Ondansetron HCl [Zofran] 4 mg PO Q6H PRN #20 tab 10/29/17 Oxycodone [Oxyir] 5 mg PO Q4H PRN PRN 4 Days #20 tab 10/29/17 Following Prescrptions Were Given to Patient: Oxycodone [Oxyir] 5 mg PO Q4H PRN PRN 4 Days #20 tab PRN Reason: Moderate Pain (pain scale 4-5) Ondansetron HCl [Zofran] 4 mg PO Q6H PRN #20 tab PRN Reason: nausea and emesis Primary Care Physician: Care Physician,No Primary [Primary Care Provider] - Please follow up with your Primary Care Physician in: Follow-up with Primary Care within 3-5 days to review admission. Please Follow Up With: Sandip Christie MD When: 1 week. Patient Instructions: Kidney Stones: Are You at Risk?, Understanding Kidney Stones, Identifying Kidney Stones, Kidney Stones: Your Evaluation, Treating Kidney Stones: Ureteroscopic Stone Removal, Preventing Kidney Stones Disposition: Home Minutes spent on discharge:: 20 Patient Condition:: Fair Medical Necessity - Tobacco Use Smoking Status: Never smoker Tobacco Use: Non-smoker Meaningful Use Info Meaningful Use Diagnoses (Choose all that apply): None applicable Code Visit Inpatient E&M: 44183 Disch Hosp
--- NOTE | 2017-10-29 17:58 | DS.PCM_ITS ---
Discharge Date and Diagnosis - Problem List Patient Problems: Active and Suspected Problems (Last Updated 10/28/17 @ 12:28 by Briana Lopez) Bilateral ureteral calculi (Acute) Bilateral hydronephrosis and hydroureter due to 3 mm calculus at right ureterovesical junction and 2.8 mm calculus at the left ureteral vesicle junction Hydronephrosis (Acute) Hydroureter (Acute) Date of Admission: 10/28/17 Date of Discharge: 10/29/17 - Primary Discharge Diagnosis Active and Suspected Problems (Last Updated 10/28/17 @ 12:28 by Briana Lopez) Bilateral ureteral calculi (Acute) Bilateral hydronephrosis and hydroureter due to 3 mm calculus at right ureterovesical junction and 2.8 mm calculus at the left ureteral vesicle junction Hydronephrosis (Acute) Hydroureter (Acute) - Secondary Discharge Diagnosis x 2 Miscarriage x [address] Christie Urology Operations: - - Cystoscopy, right ureteroscopy basket extraction of stone and stent placement, left balloon dilation left ureteroscopy basket extraction of stone and left stent. Procedures: None Summary of Care Provided: The patient is a 32 y/o F w/ no marked PMHx w/ x 2 and 1 miscarriage otherwise healthy who presents to [facility] ED on 10/29/17 w/ onset ~ 2 weeks prior L flank pain, noted to be sharp prompting UC evaluation in [place] where she lives with no intervention at that time and improvement after 24 hours; however , pain was noted to continue intermittently with then onset on AM of current presentation with new onset R sided flank pain concurrently, worsened, sharp with nausea and emesis. 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 Admitted to [place], maintain on aggressive hydration, NPO pending AM KUB, IV/PRN pain regimen, given normal renal fx additionally toradol administration, PRN anti-emetics, monitor I&Os. Given size of calculus Urology feels will likely pass without surgical intervention, however, given ongoing sxs x 2 weeks and now worsening w/ hydroureter and hydronephrosis suspect may need surgical intervention eventually, maintained on flomax, straining of urine without stone noted, IVFs, KUB in the morning unremarkable bowel gas pattern with bilateral distal ureteral stones identified and also phleboliths. AM evaluation per Urology (bilateral ureteroscopy basket extraction of stones and possible bilateral stents) with transition to OR 10/29/17 afternoon w/ cystoscopy , right ureteroscopy basket extraction of stone and stent placement, left balloon dilation left ureteroscopy basket extraction of stone and left stent. Patient following pain control, diet toleration and urination per Dr. Christie discharged to home without abx, no need for further flomax with follow-up with Dr. Christie in 1 week. Discharge Activity: - - Avoid driving with narcotic therapies. Activity per Urology discretion. May resume sexual activity in: - - Once cleared per Urology. Weight Bearing Status: Weight bearing as tolerated Call your doctor if you observe: Fever of 101 or Higher, Inability to urinate, Inability to have a bowel movement, Shortness of breath, Dizziness, Fainting spells, Chest pain, Uncontrolled pain Home Medications: Medications to take at Discharge Ondansetron HCl [Zofran] 4 mg PO Q6H PRN #20 tab 10/29/17 Oxycodone [Oxyir] 5 mg PO Q4H PRN PRN 4 Days #20 tab 10/29/17 Following Prescrptions Were Given to Patient: Oxycodone [Oxyir] 5 mg PO Q4H PRN PRN 4 Days #20 tab PRN Reason: Moderate Pain (pain scale 4-5) Ondansetron HCl [Zofran] 4 mg PO Q6H PRN #20 tab PRN Reason: nausea and emesis Primary Care Physician: Care Physician,No Primary [Primary Care Provider] - Please follow up with your Primary Care Physician in: Follow-up with Primary Care within 3-5 days to review admission. Please Follow Up With: Sandip Christie MD When: 1 week. Patient Instructions: Kidney Stones: Are You at Risk?, Understanding Kidney Stones, Identifying Kidney Stones, Kidney Stones: Your Evaluation, Treating Kidney Stones: Ureteroscopic Stone Removal, Preventing Kidney Stones Disposition: Home Minutes spent on discharge:: 20 Patient Condition:: Fair Medical Necessity - Tobacco Use Smoking Status: Never smoker Tobacco Use: Non-smoker Meaningful Use Info Meaningful Use Diagnoses (Choose all that apply): None applicable Code Visit Inpatient E&M: 39790 Disch Hosp
[2017-10-29] MEDS: Ondansetron 4 MG/2 ML Vial IV (20:05)
--- NOTE | 2017-10-29 23:13 | NURSING ---
FINANCIAL ASSISTANCE FORM SENT TO CUSTOMER VIA [employer]. HARD COPY PLACED IN CHART.
[2017-11-07 12:09] LABS: Ca Oxalate, Dihydrate 35 % (.); Ca Oxalate, Monohydrate 55 % (.); Calcium Phosphate 10 % (.)
== END 2017-10-29 23:00 | disposition home or self-care (01) | DRG 669 ==
LOC: ED 07:56 → MS2 10:47
PROVIDERS: Urology; Admitting Provider Family Medicine; Emergency Provider Emergency Medicine; Visit Provider Family Medicine
PROC: 0TJB8ZZ Inspection of Bladder, Via Natural or Artificial Opening Endoscopic (ICD-10-PCS; CPT 52000; principal; 2017-10-29 11:05)
DX: N13.2 Hydronephrosis with renal and ureteral calculous obstruction (principal)
CPT/HCPCS: 36415; 74018; 74176; 80048; 81001; 81025; 82360; 85025; 87086; 97802; 99284; J7030; A4216; C1769; C2617; J2405